=== PATIENT | male | born 1950 | race Caucasian/White ===

== ENCOUNTER 2022-06-19 08:45 | Day surgery (SDC) | payer OTHER ==
[2022-06-15 12:26] VITALS: BMI 23.7
[2022-06-19 09:18] VITALS: BP 116/79; RESP 20; TEMP 98.6
[2022-06-19 09:24] VITALS: PULSE 92
== END 2022-06-19 10:05 | disposition home or self-care (01) ==
LOC: FASU-ENDO 08:45
PROVIDERS: ATTEND Internal Medicine Gastroenterology
PROC: 0DJD8ZZ Inspection of Lower Intestinal Tract, Via Natural or Artificial Opening Endoscopic (ICD-10-PCS; principal; 2022-06-19)
DX: Z53.09 Procedure and treatment not carried out because of other contraindication (principal); Z12.11 Encounter for screening for malignant neoplasm of colon
CPT/HCPCS: 93005; 93010

== ENCOUNTER 2023-12-04 04:11 | Day surgery (SDC) | payer OTHER ==
[2023-11-28 16:44] VITALS: BMI 23.3
[2023-12-04] MEDS: HEPARIN NA (PORCINE) 5,000 UNITS/ML 1ML VIAL SQ ONE
[2023-12-04] MEDS ORDERED: BUPIVACAINE HCL/PF 0.25% (2.5MG/ML) 10 ML VIAL ONE (10:24)
[2023-12-04] MEDS ORDERED: ceFAZolin SODIUM 1 GM VIAL ONE ×2 (10:24→10:58)
[2023-12-04] MEDS ORDERED: HEPARIN NA (PORCINE) 5,000 UNITS/ML 1ML VIAL ONE (10:25)
[2023-12-04] MEDS: LISINOPRIL 20 MG TABLET PO ONE (10:55)
[2023-12-04] MEDS ORDERED: PROPOFOL 40 ML ONE (11:10)
[2023-12-04] MEDS ORDERED: LIDOCAINE HCL/PF 2% SDV 5ML VIAL ONE (11:10)
[2023-12-04] MEDS ORDERED: SUCCINYLCHOLINE CHLORIDE 200 MG/10 ML SYRINGE ONE (11:10)
[2023-12-04] MEDS ORDERED: ROCURONIUM BROMIDE 50 MG/5 ML SYRINGE ONE (11:10)
[2023-12-04] MEDS ORDERED: KETOROLAC TROMETHAMINE 30 MG/1 ML VIAL ONE (11:11)
[2023-12-04] MEDS ORDERED: ONDANSETRON 4 MG/2 ML VIAL ONE (11:11)
[2023-12-04] MEDS ORDERED: DEXAMETHASONE SOD PHOSPHATE 4 MG/1 ML VIAL ONE (11:11)
[2023-12-04] MEDS ORDERED: SODIUM CHLORIDE 0.9% P/F 10 ML VIAL IJ ONE (11:13)
[2023-12-04] MEDS ORDERED: MIDAZOLAM HCL 2 MG/2 ML SINGLE DOSE VIAL ONE (11:14)
[2023-12-04] MEDS ORDERED: INDOCYANINE GREEN 25 MG/10 ML VIAL IVPUSH ONE (11:29)
[2023-12-04] MEDS ORDERED: ACETAMINOPHEN INJECTION 100 ML ONE (11:33)
[2023-12-04] MEDS: ceFAZolin 2 GRAM PREMIX BAG IVPB ONE ×2 (11:47)
[2023-12-04] MEDS ORDERED: ePHEDrine SULFATE 50 MG/1 ML AMPULE ONE (11:52)
[2023-12-04] MEDS: BUPIVACAINE HCL/PF 0.25% (2.5MG/ML) 10 ML VIAL IJ ONE ×3 (11:59)
[2023-12-04] MEDS ORDERED: ONDANSETRON 4 MG/2 ML VIAL IVPUSH PRN (12:51)
[2023-12-04] MEDS ORDERED: oxyCODONE HCL 5 MG TABLET PO PRN (12:51)
[2023-12-04] MEDS: LACTATED RINGERS SOLUTION 1,000 ML IV SCH (13:06)
[2023-12-04 14:42] VITALS: RESP 18
[2023-12-04 16:14] VITALS: BP 159/90; PULSE 69; TEMP 97.7
== END 2023-12-04 16:30 | disposition home or self-care (01) ==
LOC: JASU-SURG 04:11
PROVIDERS: ATTEND Surgery
PROC: 0FT44ZZ Resection of Gallbladder, Percutaneous Endoscopic Approach (ICD-10-PCS; principal; 2023-12-04 12:00)
DX: K80.10 Calculus of gallbladder with chronic cholecystitis without obstruction (principal)
CPT/HCPCS: 82962; 86850; 86900; 86901; 88304-TC; 94760; J0131; J1644